=== PATIENT | male | born 1965 | race Caucasian/White ===

== ENCOUNTER 2018-08-23 09:36 | Emergency (ER) | payer OTHER ==
--- NOTE | 2018-08-23 10:12 | PDOC ---
History of Present Illness - General Chief Complaint: Pain Stated Complaint: LOWER BODY PAIN Time Seen by Provider: 08/23/18 09:43 - History of Present Illness Initial Comments: 53yo M with PMH of HTN (not on meds), nephrolithiasis 20 years ago, umbilical and R. groin hernia s/p repair presenting with back pain x 3 days. Patient is unable to describe what the pain feels like and has never had pain like this before. The pain is rated 10/10 present in bilateral flanks (R>L) and radiating down to his legs. He has been taking advil about four times a day, last dose was 200mg at 7am today. No dysuria or hematuria. Denies saddle anesthesia, pain shooting down her legs, or urinary/fecal incontinence. No fever, chills, or night sweats. Past History - Past Medical History Allergies/Adverse Reactions: Allergies Allergy/AdvReac Type Severity Reaction Status Date / Time No Known Drug Allergies Allergy Verified 08/23/18 10:25 Home Medications: Ambulatory Orders Cyclobenzaprine HCl [Flexeril -] 5 mg PO TID PRN #10 tablet 08/23/18 Ibuprofen [Motrin -] 600 mg PO QID #60 tablet 08/23/18 Lidocaine 5% Patch [Lidoderm -] 1 patch TP DAILY PRN #7 patch 08/23/18 COPD: No HTN: Yes - Surgical History Abdominal Surgery: Yes (Hernia repair of the rt. groin and umbilical 6 years ago ) - Immunization History Immunization Up to Date: Yes - Suicide/Smoking/Psychosocial Hx Smoking History: Never smoked Have you smoked in the past 12 months: No Information on smoking cessation initiated: No Hx Alcohol Use: No Drug/Substance Use Hx: No Review of Systems - Review of Systems Comments:: Constitutional: no fever, no chills HEENT: no throat pain, no dysphagia Cardiovascular: no chest pain, no palpitations Respiratory: no cough, no shortness of breath Gastrointestinal: no abdominal pain, no vomiting Genitourinary: no dysuria, no frequency Musculoskeletal: +back pain, no leg pain Skin: no rash, no itching Neurologic: no headache, no dizziness *Physical Exam - Vital Signs Last Vital Signs Temp Pulse Resp BP Pulse Ox 98.6 F 69 17 149/91 98 08/23/18 10:00 08/23/18 10:00 08/23/18 10:00 08/23/18 10:00 08/23/18 10:00 - Physical Exam Comments: General: Awake, alert, and fully oriented, in no acute distress Head: No signs of trauma Eyes: EOMI, sclera anicteric ENT: Moist mucus membranes Neck: Normal ROM, supple Lungs: Lungs clear, Normal breath sounds Cardio: Regular rhythm, S1 and S2 present Abdomen: Soft, nontender. No guarding, no rebound, no masses Extremities: Normal range of motion, Distal pulses present SKIN: Warm, Dry, normal turgor Neurologic: Cranial nerves II through XII grossly intact. Normal speech BACK: Tenderness overlying R. flank; No midline tenderness, no step-offs/ deformities/fluctuance; no overlying wound or lesion; negative straight leg test bilaterally; patient able to ambulate without difficulty Moderate Sedation - Procedure Monitoring Vital Signs: Procedure Monitoring Vital Signs Temperature 98.6 F 08/23/18 10:00 Pulse Rate 69 08/23/18 10:00 Respiratory Rate 17 08/23/18 10:00 Blood Pressure 149/91 08/23/18 10:00 O2 Sat by Pulse Oximetry (%) 98 08/23/18 10:00 ED Treatment Course - LABORATORY CBC & Chemistry Diagram: 08/23/18 10:39 08/23/18 10:39 Medical Decision Making - Medical Decision Making 53yo M with PMH of HTN (not on meds), nephrolithiasis 20 years ago, umbilical and R. groin hernia s/p repair presenting with back pain x 3 days. DDX including but not limited to MSK, nephrolithiasis, UTI, spinal stenosis\ CBC, CMP, UA, UCx Toradol IV given, pain lessened on reassessment, 8/10 No anemia or leukocytosis UA negative for hematuria or infection Back pain seems more muscular in origin though patient denies recent injury/fall /heavy exercise Lidocaine patch and flexeril ordered. Patient reassessed with 0/10 pain Pain is likely due to muscle spasm. Low suspicion for nephrolithiasis given no hematuria. Plan to discharge with flexeril, motrin, and lidocaine patch 08/23/18 12:33 *DC/Admit/Observation/Transfer Diagnosis at time of Disposition: Muscle spasm of back - Discharge Dispostion Disposition: HOME Condition at time of disposition: Improved - Prescriptions Prescriptions: Cyclobenzaprine HCl [Flexeril -] 5 mg PO TID PRN #10 tablet PRN Reason: Back Pain Ibuprofen [Motrin -] 600 mg PO QID #60 tablet Lidocaine 5% Patch [Lidoderm -] 1 patch TP DAILY PRN #7 patch PRN Reason: Back Pain - Referrals Referrals: Johnny Baca MD [Primary Care Provider] - - Patient Instructions Printed Discharge Instructions: DI for Musculoskeletal Pain Additional Instructions: You came to the ED for back pain. Your lab work and urinalysis was normal. It is important to follow up with your primary care doctor this week to discuss this visit and further assess your symptoms. Prescriptions sent to your pharmacy. Take as instructed Immediate medical attention is required if you have back pain and : numbness in the genital or rectal area, loss of bowel or bladder control, difficulty with urination, fever, unexplained weight loss, or other signs of illness or infection. If you think you are having an emergency, call for emergency medical services or present to the emergency department right away. - Post Discharge Activity
[2018-08-23] MEDS ORDERED: KETOROLAC TROMETHAMINE 30 MG/1 ML VIAL IVPUSH ONE (10:20)
[2018-08-23 10:24] VITALS: BMI 35.8
[2018-08-23] MEDS ORDERED: KETOROLAC TROMETHAMINE 30 MG/1 ML VIAL ONE (10:28)
[2018-08-23 11:05] LABS: BASO % 0.7 % (0-2.0); EOS % 2.3 % (0-4.5); HEMATOCRIT 46.8 % (35.4-49); HEMOGLOBIN 16.4 GM/dL (11.7-16.9); LYMPH % 29.2 % (8-40); MCH 31.4 pg (25.7-33.7); MCHC 35.2 g/dl (32.0-35.9); MEAN CELL VOLUME 89.3 fl (80-96); NEUT % 60.8 % (42.8-82.8); PLATELET COUNT 171 K/MM3 (134-434); RBC 5.24 M/mm3 (4.00-5.60); RDW 13.1 % (11.9-15.9); WHITE BLOOD COUNT 6.7 K/mm3 (4.0-10.0)
[2018-08-23 11:06] LABS: URINE APPEARANCE CLEAR; URINE BILIRUBIN NEGATIVE (<2.0 mg/dL); URINE COLOR YELLOW; URINE GLUCOSE (UA) NEGATIVE (NEGATIVE); URINE KETONE NEGATIVE (NEGATIVE); URINE LEUK ESTERASE NEGATIVE (NEGATIVE); URINE NITRITE NEGATIVE (NEGATIVE); URINE PROTEIN NEGATIVE (NEGATIVE); URINE UROBILINOGEN NEGATIVE mg/dL (0.2-1.0)
[2018-08-23] MEDS ORDERED: CYCLOBENZAPRINE HCL 5 MG TABLET PO ONE (11:24)
[2018-08-23] MEDS ORDERED: LIDOCAINE 5% TOPICAL PATCH TP ONE (11:24)
[2018-08-23 11:41] LABS: ALBUMIN 4.2 g/dl (3.4-5.0); ALK PHOS 55 U/L (45-117); ANION GAP 6 MMOL/L (8-16); BILIRUBIN,TOTAL 0.8 mg/dL (0.2-1); BLOOD UREA NITROGEN 19 mg/dL (7-18); CALCIUM 9.4 mg/dL (8.5-10.1); CHLORIDE 105 mmol/L (98-107); CO2 27 mmol/L (21-32); CREATININE 0.9 mg/dL (0.55-1.3); GLUCOSE,RANDOM 94 mg/dL (74-106); POTASSIUM 5.1 mmol/L (3.5-5.1); SGOT/AST 41 U/L (15-37); SGPT/ALT 57 U/L (13-61); SODIUM 137 mmol/L (136-145)
[2018-08-23] MEDS ORDERED: LIDOCAINE 5% TOPICAL PATCH ONE (11:54)
[2018-08-23] MEDS ORDERED: CYCLOBENZAPRINE HCL 10 MG TABLET (FP) ONE (11:54)
--- NOTE | 2018-08-23 12:48 | PDOC ---
Attending Attestation - Resident Resident Name: Charlene Reed - HPI HPI: 08/23/18 14:31 53 y/o male here in ED c/o rt back pain off and on x 1 week, no recent injury or trauma, no loss Pt with no loss of control of urine or stool, pt taking alleve for pain with minimal relief of pain.Pt with h/o kidney stones this does not feel like his ususal kidney stones - Physicial Exam PE: 08/23/18 14:34 HEENT: NAAT DIANA Neck: Supple Lungs: _+ bs ulises cta Heart: S1S2 regular Abd: + bs abd soft no guarding or tenderness BacK: RT side muscle spasm noted, no midline tenderness, no cva tenderness Neuro: alert and oriented x3, izzy' no focal deficits Skin: no rashes noted to skin - Medical Decision Making 08/23/18 14:37 53 y/o male here in ED c/o rt side back pain, pain improved with toradol and flexeril , exam suggestive of muscle spasm,pt is stable for dc home with out pt f/u with pcp, return to ED for increased pain in back, loss of control of urine or as needed. PT agrees with this dc plan, labs and ua from today noted and reviewed 08/23/18 14:40
[2018-08-23 13:39] VITALS: BP 150/88; PULSE 67; TEMP 98
[2018-08-23] MEDS ORDERED: LIDOCAINE PATCH REMOVAL MC SCH (22:00)
== END 2018-08-23 13:39 | disposition home or self-care (01) ==
LOC: JER 09:36
PROC: 3E0333Z Introduction of Anti-inflammatory into Peripheral Vein, Percutaneous Approach (ICD-10-PCS; principal; 2018-08-23)
DX: M62.830 Muscle spasm of back (principal)
CPT/HCPCS: 36415; 80053; 81003; 85025; 87086; 99283-25